=== PATIENT | male | born 1945 | race Caucasian/White ===

== ENCOUNTER → 2021-01-11 | Outpatient (CLI) | payer MEDICARE ==
[~2021-01-11] MED LIST: NITROSTAT0.4 MG SL
== END ==
LOC: HEART 5 14:51
DX: R59.0 Localized enlarged lymph nodes (principal)
CPT/HCPCS: 94060; 94729

== ENCOUNTER → 2021-03-10 | Day surgery (SDC) | payer MEDICARE ==
[~2021-03-10] MED LIST changes: +ECOTRIN325 MG PO; +HUMALOG100 UNIT/3 SC; +ISOSORBIDE MONO60 MG PO; +LIPITOR40 MG PO; +NEURONTIN100 MG PO; +NORVASC10 MG PO; +TOPROL XL100 MG PO; +TOPROL XL50 MG PO; +TOUJEO MAX300 UNIT/1 SQ; +TRADJENTA5 MG PO; +VENTOLIN/PROVE0.5 ML INH; +ZESTRIL5 MG PO; +ZYLOPRIM100 MG PO; +ZYRTEC10 M3 PO
== END | disposition home or self-care (01) ==
LOC: OR 03-09 09:00
DX: R59.0 Localized enlarged lymph nodes (principal); R91.8 Other nonspecific abnormal finding of lung field; J44.9 Chronic obstructive pulmonary disease, unspecified; I10 Essential (primary) hypertension; I25.10 Atherosclerotic heart disease of native coronary artery without angina pectoris; E11.9 Type 2 diabetes mellitus without complications; E78.5 Hyperlipidemia, unspecified; R94.31 Abnormal electrocardiogram [ECG] [EKG]; E66.9 Obesity, unspecified; Z79.4 Long term (current) use of insulin; Z79.82 Long term (current) use of aspirin; Z79.899 Other long term (current) drug therapy; Z88.5 Allergy status to narcotic agent; Z88.1 Allergy status to other antibiotic agents; Z20.822 Contact with and (suspected) exposure to COVID-19; Z95.1 Presence of aortocoronary bypass graft; Z87.891 Personal history of nicotine dependence
CPT/HCPCS: 71045; 82962; 87015; 87070; 87116; 87205; 87206; 93005; J0330; J1100; J2405; J2550; J7030; J7120; U0002

== ENCOUNTER 2021-04-12 19:06 | Observation (INO) | payer MEDICARE ==
[~2021-04-12] VITALS: Ht 180.3 cm; Wt 106.6 kg
[~2021-04-12 19:06] MED LIST changes: -ECOTRIN325 MG PO; -HUMALOG100 UNIT/3 SC; -ISOSORBIDE MONO60 MG PO; -NEURONTIN100 MG PO; -NORVASC10 MG PO; -TOUJEO MAX300 UNIT/1 SQ; -ZYLOPRIM100 MG PO; -ZYRTEC10 M3 PO
[2021-04-12 20:15] LABS: HEMOGLOBIN 16.4 gm/dl (14.0-17.5); RED BLOOD COUNT 5.27 M/UL (4.20-5.50); WHITE BLOOD COUNT 11.3 K/UL (4.5-11.0)
[2021-04-13 06:48] LABS: HEMOGLOBIN 15.7 gm/dl (14.0-17.5); RED BLOOD COUNT 5.08 M/UL (4.20-5.50); WHITE BLOOD COUNT 9.9 K/UL (4.5-11.0)
[2021-04-13] MEDS ORDERED: NORVASC5 MG PO (10:36)
[2021-04-13] MEDS ORDERED: ECOTRIN325 MG PO (10:37)
[2021-04-13] MEDS ORDERED: NEURONTIN100 MG PO (10:38)
[2021-04-13] MEDS ORDERED: ZYLOPRIM100 MG PO (10:39)
[2021-04-13] MEDS ORDERED: HUMALOG100 UNIT/3 SC (10:40)
[2021-04-13] MEDS ORDERED: ISOSORBIDE MONO60 MG PO (10:41)
[2021-04-13] MEDS ORDERED: TOUJEO MAX300 UNIT/1 SQ (10:43)
[2021-04-13] MEDS ORDERED: ZYRTEC10 M3 PO (10:46)
[2021-04-14 10:15] LABS: BORDETELLA PARAPERTUSSIS Not Detected (Not Detectd); BORDETELLA PERTUSSIS Not Detected (Not Detectd); CHLAMYDIA PNEUMONIAE Not Detected (Not Detectd); CORONAVIRUS HKU1 Not Detected (Not Detectd); CORONAVIRUS NL63 Not Detected (Not Detectd); CORONAVIRUS OC43 Not Detected (Not Detectd); CORONOAVIRUS 229E Not Detected (Not Detectd); HUMAN METAPNEUMOVIRUS Not Detected (Not Detectd); HUMAN RHINOVIRUS/ENTEROVIRUS Not Detected (Not Detectd); INFLUENZA A Not Detected (Not Detectd); INFLUENZA B Not Detected (Not Detectd); MYCOPLASMA PNEUMONIAE Not Detected (Not Detectd); PARAINFLUENZA VIRUS 1 Not Detected (Not Detectd); PARAINFLUENZA VIRUS 2 Not Detected (Not Detectd); PARAINFLUENZA VIRUS 3 Not Detected (Not Detectd); PARAINFLUENZA VIRUS 4 Not Detected (Not Detectd); RESPIRATORY SYNCYTIAL VIRUS Not Detected (Not Detectd)
[2021-04-14] MEDS ORDERED: PREDNISONE 20 M20 MG PO (13:18)
[2021-04-14] MEDS ORDERED: PROTONIX 40 MG40 M1 PO (13:18)
[2021-04-14] MEDS ORDERED: MEDROL DOSEPAK 24 MG PO (13:18)
[2021-04-14] MEDS ORDERED: DOXYCYCLINE HY100 M2 PO (13:18)
[2021-04-14] MEDS ORDERED: IPRAT-ALBUT 0.5-3 ML NEB (13:18)
[2021-04-14] MEDS ORDERED: OMNICEF 300 MG300 MG PO (13:18)
[2021-04-14] MEDS ORDERED: ASPIRIN EC81 MG PO (13:52)
[2021-04-14] MEDS ORDERED: SPIRIVA HANDIH18 MCG INH (13:52)
[2021-04-14 17:05] LABS: SARS-CoV-2 NOT DETECTED (Not Detectd)
== END 2021-04-14 14:16 | disposition home or self-care (01) ==
LOC: ER1 19:06 → CDU 04-13 00:35 → MED SURG 4 04-13 16:30 → CDU 04-13 16:41 → MED SURG 4 04-13 16:41
PROVIDERS: Emergency Medicine; ADMIT Internal Medicine
DX: J96.21 Acute and chronic respiratory failure with hypoxia (principal); J96.22 Acute and chronic respiratory failure with hypercapnia; R04.2 Hemoptysis; J43.9 Emphysema, unspecified; I12.9 Hypertensive chronic kidney disease with stage 1 through stage 4 chronic kidney disease, or unspecified chronic kidney disease; E11.22 Type 2 diabetes mellitus with diabetic chronic kidney disease; N18.30 Chronic kidney disease, stage 3 unspecified; I25.10 Atherosclerotic heart disease of native coronary artery without angina pectoris; M10.9 Gout, unspecified; E78.5 Hyperlipidemia, unspecified; E11.65 Type 2 diabetes mellitus with hyperglycemia; Z20.822 Contact with and (suspected) exposure to COVID-19; Z95.1 Presence of aortocoronary bypass graft; Z98.890 Other specified postprocedural states; Z95.5 Presence of coronary angioplasty implant and graft; Z88.1 Allergy status to other antibiotic agents; Z88.5 Allergy status to narcotic agent; Z91.040 Latex allergy status; Z91.041 Radiographic dye allergy status; Z79.82 Long term (current) use of aspirin; Z79.84 Long term (current) use of oral hypoglycemic drugs; Z79.4 Long term (current) use of insulin; Z79.899 Other long term (current) drug therapy; Z87.891 Personal history of nicotine dependence
CPT/HCPCS: 36415; 36600; 71045; 71250; 78580; 80048; 80053; 82803; 82962; 83880; 85025; 85027; 85379; 85610; 85730; 86738; 87081; 87278; 87633; 87880; 87899; 93005; 94640; 94760; 96374; 96375; 99285; A9540; G0378; J0360; J0696; J2405; J2930; U0002

== ENCOUNTER → 2021-06-01 | Outpatient (CLI) | payer MEDICARE ==
[~2021-06-01] MED LIST changes: +ASPIRIN EC81 MG PO; +DOXYCYCLINE HY100 M2 PO; +ECOTRIN325 MG PO; +HUMALOG100 UNIT/3 SC; +IPRAT-ALBUT 0.5-3 ML NEB; +ISOSORBIDE MONO60 MG PO; +MEDROL DOSEPAK 24 MG PO; +NEURONTIN100 MG PO; +NORVASC5 MG PO; +OMNICEF 300 MG300 MG PO; +PREDNISONE 20 M20 MG PO; +PROTONIX 40 MG40 M1 PO; +SPIRIVA HANDIH18 MCG INH; +TOUJEO MAX300 UNIT/1 SQ; +ZYLOPRIM100 MG PO; +ZYRTEC10 M3 PO
== END ==
LOC: EDBD 08:00 → KOH-I 08:00 → EDBD 08:40 → KOH-I 08:40
DX: R59.0 Localized enlarged lymph nodes (principal); R91.8 Other nonspecific abnormal finding of lung field
CPT/HCPCS: 71250